=== PATIENT | female | born 1990 | race Caucasian/White ===

== ENCOUNTER 2016-04-16 15:58 | Emergency (ER) | payer MEDICAID ==
[~2016-04-16] VITALS: Ht 175.3 cm; Wt 82.6 kg
[~2016-04-16 15:58] MED LIST: AC500T; CETI10TA17; CODE-54 PO; IBP600T1 PO; MTR500T; PREN1TAB4
[2016-04-16] MEDS ORDERED: HYDR-3781 (16:13)
--- NOTE | 2016-04-16 16:15 | ED Chest Pain ---
General Chief Complaint: Chest Wall/Rib Pain Stated Complaint: ABD PAIN Source: patient Exam Limitations: no limitations History of Present Illness Time seen by provider: 16:14 Initial Comments To ER with inferior left lateral chest wall pain worsened by movement and coughing as well as deep breathing. This pain is been present for the past 2 days. No fevers. Cough is nonproductive. No abdominal pain. No history of trauma or injury. Timing/Duration: 1-2 days Severity/Quality: moderate Location: central Radiation: no radiation ASA po YIELD ENGINEER: No NTG SL YIELD ENGINEER: No Associated Symptoms: nausea/vomiting Allergies and Home Medications Allergies Coded Allergies: Guaifenesin (Unverified Allergy, Mild, 07/26/08) Penicillins (Unverified Allergy, Mild, 07/26/08) Home Medications Hydroxyzine Pamoate 25 Mg Capsule #20 (Reported) Review of Systems Constitutional: see HPI EENTM: No Symptoms Reported Respiratory: No Symptoms Reported Cardiovascular: See HPI Chest Pain Gastrointestinal: See HPIDenies Abdominal Pain, Denies Diarrhea, Denies Nausea Genitourinary: No Symptoms Reported Musculoskeletal: no symptoms reported Skin: no symptoms reported Psychiatric/Neurological: No Symptoms Reported Endocrine: No Symptoms Reported Hematologic/Lymphatic: No Symptoms Reported Past Redvyqo-Rjkmgw-Wmfdjr Hx Patient Social History Alcohol Use: Denies Use Recreational Drug Use: No Smoking Status: Current Everyday Smoker Recent Foreign Travel: No Contact w/Someone Who Travel: No Recent Hopitalizations: Yes (rhinoplasty, jaw repositioned/broken/reset, wisdom teeth x3 removed) Physical Abuse Screen: No Sexual Abuse: No Surgeries HX Surgeries: Yes (tubes in ear, hard palate/soft palate closed,tonsilectomy, lip revision, ) Respiratory Hx Respiratory Disorders: No Cardiovascular Hx Cardiac Disorders: No Neurological Hx Neurological Disorders: Yes Reproductive System Hx Reproductive Disorders: No Genitourinary Hx Genitourinary Disorders: No Gastrointestinal Hx Gastrointestinal Disorders: No Musculoskeletal Hx Musculoskeletal Disorders: No Endocrine Hx Endocrine Disorders: No HEENT HX ENT Disorders: Yes Psychosocial Hx Psychiatric Problems: Yes Blood Transfusions Hx Blood Disorders: No Physical Exam Vital Signs Vital Sign - Last 12Hours 04/16/16 16:02 Temp 98.6 Pulse 114 B/P 115/78 Pulse Ox 99 O2 Delivery Room Air Capillary Refill : General Appearance: No Apparent Distress WD/WN HEENT: PERRL/EOMI TMs Normal Respiratory: No Accessory Muscle Use No Respiratory Distress Other (inferior aspect of the left lateral chest wall is tender to palpation but without skin lesions, ecchymosis, erythema or crepitus.) Cardiovascular: Regular Rate, Rhythm Normal Peripheral Pulses Gastrointestinal: Normal Bowel Sounds Non Tender Soft Extremity: Normal Capillary Refill Normal Inspection Neurologic/Psychiatric: Alert Oriented x3 No Motor/Sensory Deficits Skin: Normal Color Warm/Dry Progress/Results/Core Measures Results/Orders My Orders Orders-AMAURY FRANCIS APRN Ribs/Unilateral With Chest (04/16/16 16:13) Vital Signs/I&O Vital Sign - Last 12Hours 04/16/16 16:02 Temp 98.6 Pulse 114 B/P 115/78 Pulse Ox 99 O2 Delivery Room Air Departure Impression Impression: Primary Impression: Chest wall pain Disposition: HOME, SELF-CARE Condition: Stable Departure-Patient Inst. Decision time for Depature: 16:42 Referrals: MARCELO ALMODOVAR DO (PCP/Family) Primary Care Physician Patient Instructions: Chest Pain That Is Not Caused by the Heart (DC) Add. Discharge Instructions: 1. Anti-inflammatories like Naprosyn [id number] 2. You may use the stronger pain medication if Naprosyn does not help 3. Follow-up with your doctor next week. Return to ER for any worsening pain or concerns. All discharge instructions reviewed with patient and/or family. Voiced understanding. Scripts Tramadol HCl (Ultram)50 Mg [id number] Mg PO Q6H PRN PAIN #10 TAB Prov:AMAURY FRANCIS APRN 04/16/16 AMAURY FRANCIS APRN Apr 16, 2016 16:15
[2016-04-16] MEDS ORDERED: TRAM-42 PO (16:44)
--- NOTE | 2016-04-16 17:03 | Diagnostic Imaging Report ---
INDICATION: Left lower rib pain. EXAMINATION: Chest with ribs. FINDINGS: Surface marker was placed over the region of clinical complaint. The ribs reveal no bony destructive process or fracture deformity. There is no free air beneath the left diaphragm. The left lung is clear. No focal pleural pathology. IMPRESSION: Unremarkable frontal chest and left rib series. Dictated by: Dictated on workstation # [id number]
[2016-04-16 17:34] VITALS: BP 115/78
== END 2016-04-16 17:37 | disposition home or self-care (01) ==
LOC: EDUNIT# 15:58 → ER 16:00
DX: R07.89 Other chest pain (principal); F17.210 Nicotine dependence, cigarettes, uncomplicated
CPT/HCPCS: 71101

== ENCOUNTER → 2016-06-15 | Outpatient (CLI) | payer MEDICAID ==
[~2016-06-15] MED LIST changes: +HYDR-3781; +TRAM-42 PO
--- NOTE | 2016-06-15 16:36 | Diagnostic Imaging Report ---
INDICATION: History of a Mirena device x2 years with side effects. TECHNIQUE: Multiple real time frazier scale sonographic images were obtained of the pelvis transabdominally and endovaginally. CORRELATION STUDY: 01/21/2015. FINDINGS: UTERUS/ENDOMETRIUM: Uterus measures 7.8 x 6.0 x 4.3 cm. The uterus has an unremarkable appearance. There is a linear echogenic device within the endometrial canal, compatible with intrauterine contraceptive device. The overall thickness is somewhat obscured. There does appear to be some asymmetric fluid within the endometrial canal on the left. RIGHT OVARY: 3.9 x 1.9 x 3.0 cm. LEFT OVARY: Not definitively localized. There is a hypoechoic cystic area in the left adnexa, may be reflective of perhaps left ovarian cyst or paraovarian cyst. This has relatively simple appearance measuring 2.4 x 2.4 cm. No significant free pelvic fluid. IMPRESSION: 1. Intrauterine contraceptive device is present. Endometrial thickness is likely within normal limits but does contain some irregular areas of fluid collection, nonspecific. 2. The left ovary cannot be definitively visualized. There is a cyst in the left adnexa, may be associated with perhaps left ovary but is indeterminate. This has a fairly simple appearance at this time. Dictated by: Dictated on workstation # [id number]
== END ==
LOC: RAD 14:18
PROVIDERS: ATTEND Nurse Practitioner
DX: Z97.5 Presence of (intrauterine) contraceptive device (principal); N83.202 Unspecified ovarian cyst, left side
CPT/HCPCS: 76830; 76856

== ENCOUNTER 2016-09-05 05:29 | Outpatient (CLI) | payer MEDICAID ==
[~2016-09-05] VITALS: Ht 175.3 cm; Wt 85.9 kg
[2016-09-05] MEDS ORDERED: PARO40TA PO (10:05)
[2016-09-05] MEDS ORDERED: OXCA300T PO (10:05)
[2016-09-05] MEDS ORDERED: BUSP15TA60 PO (10:05)
[2016-09-05 10:09] VITALS: BP 131/85
[2016-09-05 10:55] LABS: BASOPHILS % (AUTO) 0 % (0-10); EOSINOPHILS # (AUTO) 0.2 10^3/uL (0.0-0.3); EOSINOPHILS % (AUTO) 1 % (0-10); LYMPHOCYTES % (AUTO) 19 % (12-44); MEAN CORPUSCULAR HEMOGLOBIN 31 PG (25-34); MEAN CORPUSCULAR HGB CONC 33 G/DL (32-36); MEAN CORPUSCULAR VOLUME 95 FL (80-99); MEAN PLATELET VOLUME 9.6 FL (7.4-10.4); MONOCYTES # (AUTO) 0.9 X 10^3 (0.0-1.0); MONOCYTES % (AUTO) 6 % (0-12); NEUTROPHILS # (AUTO) 11.5 X 10^3 (1.8-7.8); NEUTROPHILS % (AUTO) 73 % (42-75); PLATELET COUNT 382 10^3/uL (130-400); RED BLOOD COUNT 4.88 10^6/uL (4.35-5.85); RED CELL DISTRIBUTION WIDTH 14.8 % (10.0-14.5); WHITE BLOOD COUNT 15.6 10^3/uL (4.3-11.0)
[2016-09-06 08:08] LABS: BAND NEUTROPHILS 0 %; LYMPHOCYTES % (MANUAL) 20 %; NEUTROPHILS % (MANUAL) 68 %
[2016-09-06 08:09] LABS: EOSINOPHILS % (MANUAL) 1 %
== END 2016-09-05 12:35 | disposition home or self-care (01) ==
LOC: PREOP 05:29
PROVIDERS: ATTEND Obstetrics & Gynecology
DX: Z01.812 Encounter for preprocedural laboratory examination (principal); Z11.2 Encounter for screening for other bacterial diseases; T83.32XA Displacement of intrauterine contraceptive device, initial encounter
CPT/HCPCS: 36415; 85007; 85025; 85027; 87081

== ENCOUNTER 2016-09-12 06:00 | Day surgery (SDC) | payer MEDICAID ==
[~2016-09-12] VITALS: Ht 175.3 cm; Wt 85.9 kg
[~2016-09-12 06:00] MED LIST changes: +BUSP15TA60 PO; +OXCA300T PO; +PARO40TA PO
[2016-09-12] MEDS ORDERED: DEXAMETHASONE PF 10 MG/ML (DECADRON) VIAL ONE (06:33)
[2016-09-12] MEDS ORDERED: ONDANSETRON 4 MG/2 ML (SDV) Z0FRAN ONE (06:33)
[2016-09-12] MEDS ORDERED: LIDOCAINE PF 2% 5 ML (XYLOCAINE) VIAL ONE (06:33)
[2016-09-12] MEDS ORDERED: proPOfol 200 MG/20 ML (DIPRIVAN) VIAL IV ONE (06:33)
[2016-09-12] MEDS ORDERED: fentaNYL INJECTION 100 MCG/2 ML AMP ONE (06:34)
[2016-09-12] MEDS ORDERED: SEVOFLURANE (ULTANE) 15 ML INHAL SOLN ONE ×3 (06:40→08:08)
[2016-09-12] MEDS ORDERED: NS (IVPB) 50 ML ONE (06:52)
[2016-09-12] MEDS ORDERED: MIDAZOLAM 2 MG/2 ML (VERSED) VIAL ONE (06:52)
[2016-09-12] MEDS ORDERED: FAMOTIDINE 20MG/2ML IV (PEPCID) ONE (06:52)
[2016-09-12] MEDS ORDERED: metroNIDAZOLE 500MG/100ML IVPB 100 ML ONE (06:52)
[2016-09-12] MEDS ORDERED: ceFAZolin 1,000 MG (ANCEF) VIAL ONE (06:52)
[2016-09-12 07:00] VITALS: BP 117/82
[2016-09-12] MEDS ORDERED: FAMOTIDINE 20MG/2ML IV (PEPCID) IV ONE (07:00)
[2016-09-12] MEDS ORDERED: MIDAZOLAM 2 MG/2 ML (VERSED) VIAL IV ONE (07:00)
[2016-09-12] MEDS: LACTATED RINGERS 1,000 ML IV PRN ×2 (07:10→09:13)
--- NOTE | 2016-09-12 07:34 | Progress Note-Pre Operative ---
Pre-Operative Progress Note H&P Reviewed The H&P was reviewed, patient examined and no changes noted. Date Seen by Provider: Sep 12, 2016 Time Seen by Provider: : Date H&P Reviewed: Sep 12, 2016 Time H&P Reviewed: :30 Pre-Operative Diagnosis: IUD strings not seen, Unable to remove in the office KIT BOYD DO Sep 12, 2016 07:34
[2016-09-12] MEDS ORDERED: KETOROLAC 30 MG/ML VIAL IVP ONE ×2 (08:15→08:30)
[2016-09-12] MEDS ORDERED: KETOROLAC 30 MG/ML VIAL IVP PRN (08:15)
[2016-09-12] MEDS ORDERED: HYDROcodone/APAP 5 MG/325 MG (LORTAB) TAB PO PRN (08:15)
--- NOTE | 2016-09-12 08:18 | Operative Report ---
Operative Report Date of Procedure/Surgery Sep 12, 2016 Surgeon (s) KIT BOYD DO Senior Manager Mmcoe (s): none needed Post-Operative Diagnosis IUD imbedded in endometrium Procedure Performed Hysteroscopy, removal of IUD Description of Procedure Anesthesia Type: General Estimated blood loss (mL): minimal Specimen(s) collected/removed IUD and endometrial curetting Description of the Procedure With informed consent, the patient was taken to the operating room where the general anesthesia was found to be adequate. She was then prepped and draped in the usual sterile fashion in the dorsolithotomy position. The bladder was drained with a straight cath of clear, yellow urine (60 ml). A bivalved speculum was placed in the vagina and the cervix was grasped with a sharp toothed tenaculum. The uterus was gently sounded. I then did a gentle dilation of thec cervix with the Maxx Dilators. I then inserted a uterine forceps and attempted to grasp the IUD. I was not able to grasp the IUD, so we then proceeded with hysteroscopy. After the compliance tests and priming was done on the hysteroscope, I placed this in the cervix and did a survey of the cavity. The IUD was noted to be on the anterior wall of the endometrium. It did appear to be mildly embedded into the endometrium with some decidual tissue over the top. I then attempted to grasp the IUD with a hysteroscopic grasper, but was unable to do this I then removed the hysteroscope. At this point I took a small endometrial curette and gently scraped this along the anterior abdominal wall and this removed the IUD atraumatically. This was sent for pathology. There was minimal bleeding. The tenaculum was removed from the cervix, after the hysteroscope was removed. There was no active bleeding noted. The patient was awakened and taken recovery room in a stable condition. Sponge and instrument counts were correct 2. Findings of the Procedure IUD embedded in the anterior endometrium. Entirely visible, but appeared to be inverted and decidualized. Allergies and Home Medications Allergies Coded Allergies: Penicillins (Unverified Allergy, Mild, 09/05/16) guaifenesin (Unverified Allergy, Mild, 09/05/16) Home Medications Buspirone HCl 15 Mg Tablet, 15 MG PO BID, (Reported) Oxcarbazepine 300 Mg Tablet, 300 MG PO BID, (Reported) Paroxetine HCl 40 Mg Tablet, 40 MG PO DAILY, (Reported) KIT BOYD DO Sep 12, 2016 08:18
[2016-09-12] MEDS ORDERED: HYDR-3812 PO (08:27)
[2016-09-12] MEDS ORDERED: IBUP-1773 PO (08:27)
[2016-09-12] MEDS ORDERED: morphine INJ 10 MG/ML 1ML (SYR OR VIAL) IVP PRN (08:30)
[2016-09-12] MEDS ORDERED: MEPERIDINE (DEMEROL) INJ 50 MG/ML IVP PRN (08:30)
[2016-09-12] MEDS ORDERED: ONDANSETRON 4 MG/2 ML (SDV) Z0FRAN IVP PRN (08:30)
[2016-09-12] MEDS ORDERED: fentaNYL INJECTION 100 MCG/2 ML AMP IVP PRN (08:30)
--- NOTE | 2016-09-12 08:30 | Discharge Inst-Women's Service ---
Discharge Inst-Women's Serv Depart Medication/Instructions New, Converted or Re-Newed RX: RX on Chart Instructions expect light bleeding or spotting for up to 10 days. Unexpected when the menses will return but likely within 1 month. If conception is not wanted, then plan to use a condom or start another form of contraception (OCPs, or other ). Please call the office with your choice, or this can be discussed at your follow up next week. Final Diagnosis IUD strings not seen IUD not able to be removed in the office Embedded IUD Consults/Follow Up Additional Follow Up: Yes (1 week with Yana to discuss pathology and contraception) Activity Activity: Activity as Tolerated Driving Instructions: No Driving for 24 Hours NO SMOKING: NO SMOKING Nothing Inside Vagina: No Douching, No [place], No Tampons Diet Discharge Diet: No Restrictions Symptoms to Report to : Bleeding Excessive, Pain Increased, Fever Over 101 Degrees F, Vaginal Bleeding Increase, Cramps in Feet or Legs, Vaginal Discharge Foul For Any Problems or Questions: Contact Your Physician KIT BOYD DO Sep 12, 2016 08:30
[2016-09-12 09:15] VITALS: BP 109/73
[2016-09-12 09:45] VITALS: BP 114/79
--- OUTSIDE RECORDS SUMMARY | 2016-09-12 10:01 | XMS REPORT ---
Author HANH Montoya [facility] eClinicalWorks Address Unknown Phone Unavailable Care Team Providers Care Database Administration Associate Name Role Phone HANH MCCLENDON Unavailable Allergies No Known Allergies Problems Problem Type Condition Code Onset Dates Condition Status Assessment Encounter for PPD test Z11.1 Active Medications No Known Medications Procedures Procedure Coding System Code Date TB INTRADERMAL TEST CPT-4 21827 July 05, 2015 Results No Known Results Summary Purpose eClinicalWorks Submission
--- OUTSIDE RECORDS SUMMARY | 2016-09-12 10:01 | XMS REPORT | Continuity of Care Document ---
Author Author [facility] Organization [facility] Address Unknown Phone Unavailable Allergies Active Description Code Type Severity Reaction Onset Reported/Identified Relationship to Patient Clinical Status Yes guaifenesin [id number] Drug Allergy Mild N/A 09/05/2016 Yes Penicillins [id number] Drug Allergy Mild N/A 09/05/2016 Medications Problems Date Dx Coded Attending Type Code Diagnosis Diagnosed By 02/22/2010 Ot 276.51 DEHYDRATION 02/22/2010 Ot 276.8 HYPOPOTASSEMIA 02/22/2010 Ot 599.0 URIN TRACT INFECTION NOS 02/22/2010 Ot 644.03 THRT SEAN LABOR-ANTEPART 02/22/2010 Ot 646.63 INFECTION-ANTEPARTUM 02/22/2010 Ot 646.83 PREG COMPL NEC-ANTEPART 04/20/2010 Ot 530.81 04/20/2010 Ot 646.81 04/20/2010 Ot 664.01 04/20/2010 Ot V27.0 01/21/2015 Ot V28.89 01/21/2015 Ot V72.84 01/21/2015 Ot 569.3 01/21/2015 Ot V16.0 03/03/2015 ARTHUR MALDONADO TANGLED YARN WORKER Ot N93.9 03/11/2015 ARTHUR MALDONADO TANGLED YARN WORKER Ot N93.9 05/06/2015 ARTHUR MALDONADO TANGLED YARN WORKER Ot N93.9 05/06/2015 ARTHUR MALDONADO TANGLED YARN WORKER Ot N93.9 05/21/2015 ARTHUR MALDONADO TANGLED YARN WORKER Ot N93.9 03/03/2016 ARTHUR MALDONADO TANGLED YARN WORKER Ot N93.9 ABNORMAL UTERINE AND VAGINAL BLEEDING, U 03/07/2016 MARCELO ALMODOVAR DO Ot N63 UNSPECIFIED LUMP IN BREAST 03/07/2016 COLTHMARCELO RIGGS DO Ot N64.4 MASTODYNIA 03/21/2016 MARCELO ALMODOVAR DO Ot N63 UNSPECIFIED LUMP IN BREAST 03/21/2016 MARCELO ALMODOVAR DO A Ot N64.4 MASTODYNIA 04/16/2016 AMAURY FRANCIS APRN Ot F17.210 NICOTINE DEPENDENCE, CIGARETTES, UNCOMPL 04/16/2016 AMAURY FRANCIS ASSEMBLY MACHINE TOOL SETTER Ot R05 COUGH 04/16/2016 AMAURY FRANCIS ASSEMBLY MACHINE TOOL SETTER Ot R07.89 OTHER CHEST PAIN 04/18/2016 AMAURY FRANCIS ASSEMBLY MACHINE TOOL SETTER Ot F17.210 NICOTINE DEPENDENCE, CIGARETTES, UNCOMPL 04/18/2016 AMAURY FRANCIS ASSEMBLY MACHINE TOOL SETTER Ot R05 COUGH 04/18/2016 AMAURY FRANCIS ASSEMBLY MACHINE TOOL SETTER Ot R07.89 OTHER CHEST PAIN 04/19/2016 AMAURY FRANCIS APRN Ot F17.210 NICOTINE DEPENDENCE, CIGARETTES, UNCOMPL 04/19/2016 AMAURY FRANCIS APRN Ot R05 COUGH 04/19/2016 AMAURY FRANCIS APRN Ot R07.89 OTHER CHEST PAIN 06/16/2016 ARTHUR MALDONADO Ot N83.202 UNSPECIFIED OVARIAN CYST, LEFT SIDE 06/16/2016 ARTHUR MALDONADO Ot Z97.5 PRESENCE OF (INTRAUTERINE) CONTRACEPTIVE 07/04/2016 ARTHUR MALDONADO Ot N83.202 UNSPECIFIED OVARIAN CYST, LEFT SIDE 07/04/2016 ARTHUR MALDONADO Ot Z97.5 PRESENCE OF (INTRAUTERINE) CONTRACEPTIVE 09/07/2016 KIT BOYD DO Ot T83.32XA DISPLACEMENT OF INTRAUTERINE CONTRACEPTI 09/07/2016 KIT BOYD DO Ot Z01.812 ENCOUNTER FOR PREPROCEDURAL LABORATORY E 09/07/2016 KIT BOYD DO Ot Z11.2 ENCOUNTER FOR SCREENING FOR OTHER BACTER Procedures Results Test Result Range Methicillin resistant Staphylococcus aureus (MRSA) screening culture - 10:15 Methicillin resistant Staphylococcus aureus (MRSA) screening culture NEG NRG Complete blood count (CBC) with automated white blood cell (WBC) differential - 09/05/16 10:20 Blood leukocytes automated count (number/volume) 15.6 10*3/ uL 4.3-11.0 Blood erythrocytes automated count (number/volume) 4.88 10*6 /uL 4.35-5.85 Venous blood hemoglobin measurement (mass/volume) 15.0 g/dL 11.5-16.0 Blood hematocrit (volume fraction) 46 % 35-52 Automated erythrocyte mean corpuscular volume 95 [foz_us] 80-99 Automated erythrocyte mean corpuscular hemoglobin (mass per erythrocyte) 31 pg 25-34 Automated erythrocyte mean corpuscular hemoglobin concentration measurement ( mass/volume) 33 g/dL 32-36 Automated erythrocyte distribution width ratio 14.8 % 10.0-14.5 Automated blood platelet count (count/volume) 382 10*3/uL 130-400 Automated blood platelet mean volume measurement 9.6 [foz_us ] 7.4-10.4 Automated blood neutrophils/100 leukocytes 73 % 42-75 Automated blood lymphocytes/100 leukocytes 19 % 12-44 Blood monocytes/100 leukocytes 6 % 0-12 Automated blood eosinophils/100 leukocytes 1 % 0-10 Automated blood basophils/100 leukocytes 0 % 0-10 Blood neutrophils automated count (number/volume) 11.5 10*3 1.8-7.8 Blood lymphocytes automated count (number/volume) 3.0 10*3 1.0-4.0 Blood monocytes automated count (number/volume) 0.9 10*3 0.0-1.0 Automated eosinophil count 0.2 10*3/uL 0.0-0.3 Automated blood basophil count (count/volume) 0.0 10*3/uL 0.0-0.1 Blood manual differential performed detection - 09/05/16 10:20 Blood monocytes/100 leukocytes 11 % NRG Manual blood segmented neutrophils/100 leukocytes 68 % NRG Blood band neutrophils/100 leukocytes 0 % NRG Manual blood lymphocytes/100 leukocytes 20 % NRG Manual eosinophils/100 leukocytes in nose 1 % NRG Blood erythrocyte morphology finding identification NORMAL NRG Encounters ACCT No. Visit Date/Time Discharge Status Pt. Type Provider Facility Loc./Unit Complaint [id number] 09/05/2016 05:29:00 2016 12:35:00 DIS Outpatient KIT BOYD DO [facility] PREOP IMBEDDED IUD [id number] 04/16/2016 16:00:00 2016 17:37:00 DIS Emergency AMAURY FRANCIS APRN [facility] ER ABD PAIN [id number] 01/21/2015 14:11:00 2014 23:59:59 CLS Outpatient ARTHUR MALDONADO [facility] RAD VAGINAL BLEEDING [id number] 09/12/2016 08:00:00 PEN Preadmit KIT BODY DO [facility] IMBEDDED IUD [id number] 06/15/2016 14:18:00 ACT Outpatient ARTHUR MALDONADO TANGLED YARN WORKER [facility] RAD IUD REMOVAL [id number] 03/03/2016 10:47:00 ACT Outpatient MARCELO ALMODOVAR DO [facility] RAD RT BREAST TENDERNESS W/MASS [id number] 06/19/2011 08:01:00 Document Registration [id number] 06/15/2011 08:06:00 Document Registration [id number] 04/17/2010 23:40:00 Document Registration [id number] 04/06/2010 10:57:00 Document Registration [id number] 02/21/2010 15:00:00 Document Registration
[2016-09-12 10:15] VITALS: BP 121/72
[2016-09-13] MEDS ORDERED: IBUPROFEN 600 MG (MOTRIN) TAB PO SCH (12:00)
== END 2016-09-12 10:32 | disposition home or self-care (01) ==
LOC: SDC 06:00
PROVIDERS: ATTEND Obstetrics & Gynecology
DX: T83.32XA Displacement of intrauterine contraceptive device, initial encounter (principal); F32.9 Major depressive disorder, single episode, unspecified; Z79.899 Other long term (current) drug therapy
CPT/HCPCS: 84703

== ENCOUNTER 2021-07-23 15:50 | Emergency (ER) | payer OTHER, MEDICAID ==
[~2021-07-23] VITALS: Ht 175 cm; Wt 84.0 kg
[~2021-07-23 15:50] MED LIST changes: +ACHD5005 PO; +IBUP-1773 PO; -OXCA300T PO; +OXCA300T18 PO
--- NOTE | 2021-07-23 16:14 | ED General ---
General Chief Complaint: Exposure Stated Complaint: NEEDLE STICK Source of Information: Patient Exam Limitations: No Limitations (CECILIA BANKS) History of Present Illness Date Seen by Provider: July 23, 2021 Time Seen by Provider: 16:10 Initial Comments Patient is a 30-year-old female who presents to the ED with a puncture wound to the left palmar hand overlying the thumb. This occurred around 215 today. She works for [employer]. She Was cleaning a patient home when she was stuck with a needle on the bottom side of the trash sack. She believes it was a lancet to check blood sugar. She did see the needle. Believes that the needle is from the patient's son who lives there. Unclear if the son has HIV, hepatitis. Patient up-to-date her tetanus. She reports no blood from the area. Denies fever, swelling, redness, chills, chest pain, shortness of breath. Patient was not wearing gloves. The patient has no known history of blood-borne pathogen (CECILIA BANKS) Allergies and Home Medications Allergies Coded Allergies: blueberry (Verified Allergy, Intermediate, 07/23/21) Penicillins (Unverified Allergy, Mild, 09/05/16) guaifenesin (Unverified Allergy, Mild, 09/05/16) Uncoded Allergies: ANESTHESIA GAS (Allergy, Intermediate, 07/23/21) EGGS (Allergy, Intermediate, 07/23/21) Patient Home Medication List Home Medication List Reviewed: Yes (CECILIA BANKS) Buspirone HCl (Buspirone HCl) 15 Mg Tablet, 15 MG PO BID, (Reported) Entered as Reported by: ANDREI HILL on 09/05/16 1005 Hydrocodone Bit/Acetaminophen (Lortab 5 Mg Tablet) 1 Each Tablet, 1 TAB PO Q4H PRN for PAIN-MODERATE Prescribed by: KIT BOYD on 09/12/16826 Ibuprofen (Ibuprofen) 600 Mg Tablet, 600 MG PO Q6HR Prescribed by: KIT BOYD on 09/12/16826 Oxcarbazepine (Oxcarbazepine) 300 Mg Tablet, 300 MG PO BID, (Reported) Entered as Reported by: ANDREI HILL on 09/05/16 1005 Paroxetine HCl (Paxil) 40 Mg Tablet, 40 MG PO DAILY, (Reported) Entered as Reported by: ANDREI HILL on 09/05/16 1005 Review of Systems Review of Systems Constitutional: No chills, No diaphoresis, No fever, No malaise EENTM: No blurred vision, No double vision Respiratory: No cough, No short of breath, No wheezing Cardiovascular: No chest pain, No edema Gastrointestinal: No abdominal pain, No diarrhea, No nausea, No vomiting Genitourinary: No decreased output, No discharge Musculoskeletal: No back pain, No joint pain, No joint swelling, No muscle pain Skin: change in color (CECILIA BANKS) All Other Systems Reviewed Negative Unless Noted: Yes (CECILIA BANKS) Past Mxkkkjx-Vsjlhd-Vwsgtu Hx Seasonal Allergies Seasonal Allergies: No (CECILIA BANKS) Past Medical History Tonsillectomy Headaches /Migraines Reproductive Disorders: No Female Reproductive Disorders: Ovarian Cyst Sexually Transmitted Disease: No HIV/AIDS: No Gastroesophageal Reflux Arthritis, Chronic Back Pain Loss of Vision: Bilateral Hearing Impairment: Denies ADD/ADHD, Anxiety, PTSD, Depression Adverse Reaction/Blood Tranf: No (N/A) (CECILIA BANKS) Physical Exam Vital Signs Vital Signs - First Documented 07/23/21 16:04 Temp 37.0 Pulse 105 Resp 20 B/P (MAP) 118/90 (99) Pulse Ox 98 O2 Delivery Room Air (LUIS,ART K DO) Vital Signs Capillary Refill : (CECILIA BANKS) Height, Weight, BMI Height: 5'9.00" Weight: 189lbs. 6.0oz. 85.759793cv; 28.0 BMI Method:Stated General Appearance: No Apparent Distress, WD/WN Eyes: Bilateral Eye Normal Inspection, Bilateral Eye PERRL, Bilateral Eye EOMI HEENT: PERRL/EOMI, TMs Normal, Normal ENT Inspection, Pharynx Normal Neck: Full Range of Motion, Normal Inspection, Non Tender, Supple Respiratory: Chest Non Tender, Lungs Clear, Normal Breath Sounds Cardiovascular: Regular Rate, Rhythm, No Murmur Gastrointestinal: Normal Bowel Sounds, No Organomegaly Back: Normal Inspection, No CVA Tenderness Extremity: Normal Capillary Refill, Normal Inspection, Normal Range of Motion Neurologic/Psychiatric: Alert, Oriented x3, No Motor/Sensory Deficits, Normal Mood/Affect Skin: Other (Very small pinpoint left palmar hand. No active bleeding. No tenderness swelling or bruising) (CECILIA BANKS) Progress/Results/Core Measures Suspected Sepsis SIRS Temperature: Pulse: Respiratory Rate: Blood Pressure / Mean: (CECILIA BANKS) Results/Orders Lab Results Laboratory Tests Test 07/23/21 16:35 Range/Units Hepatitis B Surface Antigen Non-Reactive Non-Reactive Hepatitis B Surface Antibody Index <8.00 L >=12.00 mIU/mL Hepatitis Bs Antibody Interpret Non-Immune Immune Hepatitis C Antibody Non-Reactive Non-Reactive HIV (1&2) Ag and Ab Screen Referral Non-Reactive Non-Reactive (ART SMITH DO) Vital Signs/I&O 07/23/21 07/23/21 16:04 16:45 Temp 37.0 37.0 Pulse 105 99 Resp 20 20 B/P (MAP) 118/90 (99) 118/90 Pulse Ox 98 98 O2 Delivery Room Air Room Air (ART SMITH DO) Vital Signs/I&O Capillary Refill : (CECILIA BANKS) Departure Communication (PCP) Patient with a needlestick today around 215 this afternoon. very small puncture wound to left dorsum hand. Was not wearing gloves. No blood involvement. Needle was from a lancet to check blood sugar. The patient's son who needle it was has no history of any blood-borne pathogens. Patient was discussed with Connie at occupational health who recommends HIV, hepatitis B and C. She believes she is up-to-date on her hepatitis B vaccines. Patient was given a tetanus shot. No treatment at this time. We will follow-up on Sunday with occupational health. Pretty low risk for HIV, hepatitis. She has no other current complaints. No further evaluation was recommended at this time after talking with occupational health. Potential unknown source. (CECILIA BANKS) Impression Primary Impression: Needle exposure Disposition: HOME, SELF-CARE Condition: Stable Departure-Patient Inst. Decision time for Depature: 16:33 (CECILIA BANKS) Referrals: JONAS BRODERICK (PCP/Family) Primary Care Physician Patient Instructions: Proper Disposal of Geraldine Add. Discharge Instructions: Need to follow-up with occupational health who will contact you on Sunday All discharge instructions reviewed with patient and/or family. Voiced understanding. ATTENDING PHYSICIAN NOTE: I WAS PHYSICALLY PRESENT ER PHYSICIAN, BUT I WAS NOT INVOLVED IN ANY DECISION MAKING OR ANY CARE OF THIS PATIENT. (ART SMITH DO) CECILIA BANKS July 23, 2021 16:14 ART SMITH DO July 27, 2021 06:15
[2021-07-23] MEDS ORDERED: TETANUS,DIPTH,PERTUSS P/F (BOOSTRIX) 0.5 ML VIAL IM ONE (16:30)
[2021-07-23 16:45] VITALS: BP 118/90
[2021-07-25 14:38] LABS: HEPATITIS C ANTIBODY C Non-Reactive (Non-Reactive)
== END 2021-07-23 16:45 | disposition home or self-care (01) ==
LOC: EDUNIT# 15:50 → ER 15:54
DX: S61.432A Puncture wound without foreign body of left hand, initial encounter (principal); Z23 Encounter for immunization; W46.1XXA Contact with contaminated hypodermic needle, initial encounter
CPT/HCPCS: 86703; 86803; 87340; 99283; G0499; 36415; 86706; 90715

== ENCOUNTER 2021-08-02 12:25 | Outpatient (RCR) | payer MEDICAID, OTHER ==
[2021-08-02 13:56] LABS: ABSOLUTE RETIC # 74 10e9/uL (24-90); BASOPHILS # (AUTO) 0.1 10^3/uL (0.0-0.1); BASOPHILS % (AUTO) 0 % (0-10); EOSINOPHILS # (AUTO) 0.1 10^3/uL (0.0-0.3); EOSINOPHILS % (AUTO) 1 % (0-10); HEMATOCRIT 44 % (35-52); LYMPHOCYTES # (AUTO) 3.1 10^3/uL (1.0-4.0); LYMPHOCYTES % (AUTO) 20 % (12-44); MEAN CORPUSCULAR HEMOGLOBIN 28 pg (25-34); MEAN CORPUSCULAR HGB CONC 32 g/dL (32-36); MEAN CORPUSCULAR VOLUME 88 fL (80-99); MEAN PLATELET VOLUME 8.8 fL (9.0-12.2); MONOCYTES # (AUTO) 0.9 10^3/uL (0.0-1.0); MONOCYTES % (AUTO) 5 % (0-12); NEUTROPHILS # (AUTO) 11.6 10^3/uL (1.8-7.8); NEUTROPHILS % (AUTO) 74 % (42-75); PLATELET COUNT 453 10^3/uL (130-400); RETICULOCYTE % 1.48 % (0.50-2.40); WHITE BLOOD COUNT 15.8 10^3/uL (4.3-11.0)
[2021-08-02 14:16] LABS: ALBUMIN 4.4 GM/DL (3.2-4.5); BILIRUBIN,TOTAL 0.2 MG/DL (0.1-1.0); CALCIUM 9.8 MG/DL (8.5-10.1); CREATININE SERUM 0.76 MG/DL (0.60-1.30); POTASSIUM 3.7 MMOL/L (3.6-5.0); TOTAL PROTEIN 8.1 GM/DL (6.4-8.2)
[2021-08-02 14:18] LABS: ERYTHROCYTE SEDIMENTATION RATE 28 MM/HR (0-20)
== END 2021-08-16 | disposition home or self-care (01) ==
LOC: ONC 12:25
PROVIDERS: ATTEND Internal Medicine Hematology & Oncology
DX: D72.0 Genetic anomalies of leukocytes (principal); D75.839 Thrombocytosis, unspecified; E78.00 Pure hypercholesterolemia, unspecified; I10 Essential (primary) hypertension; E03.9 Hypothyroidism, unspecified
CPT/HCPCS: 36415; 80053; 82728; 83540; 83550; 83615; 85025; 85045; 85652; 99214

== ENCOUNTER → 2021-08-12 | Outpatient (CLI) | payer MEDICAID ==
--- NOTE | 2021-08-12 10:57 | Diagnostic Imaging Report ---
PROCEDURE: US Thyroid. TECHNIQUE: Multiple real-time grayscale images were obtained of the thyroid in various projections. INDICATION: Enlarged thyroid gland. COMPARISON: None available FINDINGS: The right lobe of the thyroid gland is borderline enlarged measuring 5.3 x 1.8 x 2.0 cm. A solid hypoechoic nodule with smooth circumscribed margins and posterior acoustic enhancement is noted within the mid inferior pole of the right thyroid lobe measuring 2.1 x 1.6 x 1.1 cm. This is wider than tall. No additional right thyroid nodules. The left lobe of thyroid gland is mildly enlarged measuring 5.3 x 1.5 x 1.8 cm. It maintains a homogeneous echotexture without discrete nodule. Isthmus is mildly thickened measuring 0.5 cm without discrete nodule. IMPRESSION: 2.1 cm Ti RADS 4 nodule within the right thyroid lobe. Fine-needle aspiration is recommended. The thyroid gland is borderline enlarged. Dictated by: Dictated on workstation # [id number]
== END ==
LOC: RAD 10:00
PROVIDERS: ATTEND Surgery
DX: E04.1 Nontoxic single thyroid nodule (principal)
CPT/HCPCS: 76536

== ENCOUNTER → 2021-08-31 | Outpatient (CLI) | payer MEDICAID ==
[~2021-08-31] VITALS: Ht 175.3 cm; Wt 84.5 kg
[~2021-08-31] MED LIST changes: +LIDOCAINE 1% INJ 20 ML VIAL INJ ONE
--- NOTE | 2021-08-31 10:58 | Diagnostic Imaging Report ---
INDICATION: Right thyroid nodule. Patient presents for ultrasound-guided fine-needle aspiration biopsy. Patient was brought to the procedure and placed on table in supine position. Ultrasound imaging of the right neck was performed to evaluate appropriate entry site. Right neck was prepped and draped in usual sterile fashion. Small amount of 1% lidocaine was utilized for local anesthesia. Total of 4 passes were made into the dominant circumscribed solid nodule right lobe of thyroid utilizing 25-gauge needles and fine-needle aspiration technique. A single pass was made with a Rotex needle and Rotex biopsy was performed. Hemostasis was obtained. Patient tolerated procedure well and left the department in stable condition. IMPRESSION: Successful ultrasound-guided fine-needle aspiration and Rotex biopsy of right lobe thyroid nodule. Pathology results are currently pending. Dictated by: Dictated on workstation # [id number]
== END ==
LOC: RAD 10:15
PROVIDERS: ATTEND Surgery
DX: E04.1 Nontoxic single thyroid nodule (principal)
CPT/HCPCS: 10005

== ENCOUNTER → 2022-05-17 | Outpatient (CLI) | payer MEDICAID ==
[~2022-05-17] MED LIST changes: -LIDOCAINE 1% INJ 20 ML VIAL INJ ONE; +PARO-135 PO; -PARO40TA PO
--- NOTE | 2022-05-17 15:23 | Diagnostic Imaging Report ---
PROCEDURE: US Thyroid. TECHNIQUE: Multiple real-time grayscale images were obtained of the thyroid in various projections. INDICATION: History of right-sided thyroid nodule. Previous thyroidectomy. COMPARISON: 08/12/2021. FINDINGS: Right thyroid lobe is surgically absent. There is no evidence of residual thyroid tissue, nodule, or mass within the right thyroid bed. Left thyroid lobe is homogeneous and measures 5.1 x 1.5 x 1.9 cm. No suspicious masses or nodules are seen on the left. Color flow images show normal vascularity. Isthmus is within normal limits and measures 4 mm in AP thickness. IMPRESSION: 1. Expected postoperative changes of previous right thyroidectomy. Dictated by: Dictated on workstation # [id number]
== END ==
LOC: RAD 10:48
PROVIDERS: ATTEND Otolaryngology Plastic Surgery within the Head & Neck
DX: E04.1 Nontoxic single thyroid nodule (principal)
CPT/HCPCS: 76536

== ENCOUNTER 2022-11-20 08:12 | Emergency (ER) | payer MEDICAID ==
[~2022-11-20] VITALS: Ht 175.2 cm; Wt 100.0 kg
[2022-11-20 08:44] VITALS: BP 115/89
--- NOTE | 2022-11-20 09:44 | ED General ---
General Chief Complaint: Cough/Cold/Flu Symptoms Stated Complaint: CONGESTION - COUGH - VOMITING Nursing Triage Note: pt states cough, congestion, migrane, right jaw pain, possible ear infection for a few days. states she has taken 4 covid home tests all negative Source of Information: Patient Exam Limitations: No Limitations History of Present Illness Date Seen by Provider: Nov 20, 2022 Time Seen by Provider: 08:49 Initial Comments Here with report of several days of frontal sinus pain, cough, congestion and right ear pain. Does have history of cleft palate repair and does have yearly sinus infections. She was worried about COVID and has taken for COVID test this week and those have been negative. Denies nausea, vomiting or diarrhea. Denies fevers but does have other upper respiratory symptoms. She does have purulent mucus drainage from the nose. Timing/Duration: 4-5 Days Severity: Moderate Associated Systoms: No Chest Pain; Cough; No Fever/Chills; Headaches; No Nausea/Vomiting, No Shortness of Air Allergies and Home Medications Allergies Coded Allergies: blueberry (Verified Allergy, Intermediate, 07/23/21) Penicillins (Unverified Allergy, Mild, 09/05/16) guaifenesin (Unverified Allergy, Mild, 09/05/16) Uncoded Allergies: ANESTHESIA GAS (Allergy, Intermediate, 07/23/21) EGGS (Allergy, Intermediate, 07/23/21) Patient Home Medication List Home Medication List Reviewed: Yes Buspirone HCl (Buspirone HCl) 15 Mg Tablet, 15 MG PO BID, (Reported) Entered as Reported by: ANDREI HILL on 09/05/16 100 Hydrocodone Bit/Acetaminophen (Lortab 5 Mg Tablet) 1 Each Tablet, 1 TAB PO Q4H PRN for PAIN-MODERATE Prescribed by: KIT BOYD on 09/12/16826 Ibuprofen (Ibuprofen) 600 Mg Tablet, 600 MG PO Q6HR Prescribed by: KIT BOYD on 09/12/16826 Oxcarbazepine (Oxcarbazepine) 300 Mg Tablet, 300 MG PO BID, (Reported) Entered as Reported by: ANDREI HILL on 09/05/16 100 Paroxetine HCl (Paxil) 40 Mg Tablet, 40 MG PO DAILY, (Reported) Entered as Reported by: ANDREI HILL on 09/05/16 1005 Review of Systems Review of Systems Constitutional: see HPI; No chills, No fever EENTM: see HPI Respiratory: cough; No short of breath Cardiovascular: no symptoms reported Gastrointestinal: No nausea, No vomiting Skin: no symptoms reported Psychiatric/Neurological: See HPI Past [id number]-Ssqaam Hx Patient Social History Tobacco Use?: Yes Use of E-Cig and/or Vaping dev: Yes E-Cig or Vaping type used: Nicotine, Marijuana Substance use?: Yes Substance type: Marijuana Alcohol Use?: No Seasonal Allergies Seasonal Allergies: No Past Medical History Surgery/Hospitalization HX: FACIAL REONSTRUCTION FROM CLEFT PALATE, TONISLECTOMY, 4 NATURAL BIRTHS Surgeries: Yes Tonsillectomy Respiratory: No Cardiac: No Neurological: Yes Headaches /Migraines Reproductive Disorders: No Female Reproductive Disorders: Ovarian Cyst Sexually Transmitted Disease: No HIV/AIDS: No Gastroesophageal Reflux Musculoskeletal: Yes Arthritis, Chronic Back Pain Loss of Vision: Bilateral Hearing Impairment: Denies ADD/ADHD, Anxiety, PTSD, Depression Adverse Reaction/Blood Tranf: No (N/A) Family Medical History No Pertinent Family Hx Physical Exam Vital Signs Vital Signs - First Documented 11/20/22 08:44 Temp 36.7 Pulse 56 Resp 18 B/P (MAP) 115/89 (98) Pulse Ox 98 Capillary Refill : Less Than 3 Seconds Height, Weight, BMI Height: 5'9.00" Weight: 189lbs. 6.0oz. 85.159062br; 32.00 BMI Method:Stated General Appearance: No Apparent Distress, WD/WN HEENT: PERRL/EOMI, Other (Mild pharyngeal erythema and patient has had uvulectomy and tonsillectomy. Bilateral nasal membranes inflamed with left with mucus drainage and right with significant erythema. TMs bulging bilateral without significant erythema or loss of landmarks.) Neck: Non Tender, Supple; No Lymphadenopathy (L), No Lymphadenopathy (R) Respiratory: Lungs Clear, No Respiratory Distress Cardiovascular: Regular Rate, Rhythm, No Murmur Extremity: Normal Range of Motion, Non Tender Neurologic/Psychiatric: Alert, Oriented x3 Progress/Results/Core Measures Suspected Sepsis SIRS Temperature: Pulse: 56 Respiratory Rate: 18 Blood Pressure 115 /89 Mean: 98 Results/Orders Lab Results Laboratory Tests Test 11/20/22 08:51 Range/Units Influenza Type A (RT-PCR) Not Detected Not Detecte Influenza Type B (RT-PCR) Not Detected Not Detecte SARS-CoV-2 RNA (RT-PCR) Not Detected Not Detecte My Orders Orders - MELISSA VANCE MD Influenza A And B By Pcr (11/20/22 08:49) Covid 19 Inhouse Test (11/20/22 08:49) Vital Signs/I&O 11/20/22 08:44 Temp 36.7 Pulse 56 Resp 18 B/P (MAP) 115/89 (98) Pulse Ox 98 Capillary Refill : Less Than 3 Seconds Blood Pressure Mean: 98 Progress Note : Progress Note Seen and evaluated. Influenza and COVID screen initiated. Patient likely with sinusitis based on symptoms. Monitor patient. 09: COVID and influenza are negative. We will treat with outpatient antibiotics and OTC meds for acute sinusitis. Discussed with patient who agrees. Discharged home with return precautions. Patient verbalized understanding of instructions and agreement with plan. Departure Impression Primary Impression: Acute sinusitis Qualified Codes: J01.10 - Acute frontal sinusitis, unspecified Disposition: HOME, SELF-CARE Condition: Stable Departure-Patient Inst. Decision time for Depature: 09:47 Referrals: NO,LOCAL PHYSICIAN (PCP/Family) Primary Care Physician Patient Instructions: Sinusitis, Adult ED Add. Discharge Instructions: All discharge instructions reviewed with patient and/or family. Voiced understanding. Take medications as directed. You may take Tylenol/acetaminophen 1000 mg every 8 hours as needed for fever or pain. You may take ibuprofen 600 mg every 8 hours as needed for fever or pain. You may use Afrin nasal spray or the generic, 12 hour relief, 2 sprays to each nostril twice daily for 3 days only and then stop. Do not use more than 3 days. Follow-up with your DrBj in a few days for recheck. Drink plenty of fluids. Return for worse pain, fever, vomiting, weakness, breathing problems or other concerns as needed. Scripts Cefdinir (Cefdinir) 300 Mg Capsule 300 MG PO BID, #20 CAP 0 Refills Prov: MELISSA VANCE MD 11/20/22 MELISSA VANCE MD Nov 20, 2022 09:44
[2022-11-20] MEDS ORDERED: CEFD300C3 PO (09:48)
== END 2022-11-20 09:57 | disposition home or self-care (01) ==
LOC: EDUNIT# 08:12 → ER 08:13
DX: J01.90 Acute sinusitis, unspecified (principal); F17.290 Nicotine dependence, other tobacco product, uncomplicated; Z20.822 Contact with and (suspected) exposure to COVID-19
CPT/HCPCS: 87636; 99283